=== PATIENT | female | born 2000 | race Caucasian/White ===

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

== ENCOUNTER 2021-09-30 17:08 | Emergency (ER) | payer MEDICAID ==
[2021-09-30 17:30] VITALS: BP 112/65; PULSE 86; O2SAT 96
== END 2021-09-30 18:12 | disposition left against medical advice (07) ==
LOC: ED 17:08
DX: Z53.9 Procedure and treatment not carried out, unspecified reason (principal)
CPT/HCPCS: 99283; G0463

== ENCOUNTER 2021-09-30 18:15 | Observation (INO) | payer MEDICAID ==
[2021-09-30 20:00] VITALS: BP 116/61; PULSE 79; O2SAT 99
[2021-09-30 20:37] LABS: Appearance SLIGHTLY CLOUDY (CLEAR); Bacteria RARE /HPF (NEGATIVE); Bilirubin NEGATIVE (NEGATIVE); Blood NEGATIVE Ery/ul (0-5); Epithelial Cells RARE /HPF (FEW); Glucose NEGATIVE (NEGATIVE); Ketones SMALL (NEGATIVE); Leukocyte Esterase TRACE (NEGATIVE); Mucus SLIGHT /HPF (NEGATIVE); Nitrite NEGATIVE (NEGATIVE); Protein,Urine Dip NEGATIVE (Negative); Specific Gravity 1.023 (1.005-1.025); Urobilinogen NEGATIVE mg/dL (0-1)
== END 2021-09-30 21:10 | disposition home or self-care (01) ==
LOC: OB 18:15
PROVIDERS: ADMIT Obstetrics & Gynecology; ATTEND Obstetrics & Gynecology
DX: Z34.02 Encounter for supervision of normal first pregnancy, second trimester (principal); Z3A.24 24 weeks gestation of pregnancy
CPT/HCPCS: 81001; G0378

== ENCOUNTER 2024-09-21 17:01 | Emergency (ER) | payer BC ==
[2024-09-21 17:24] VITALS: TEMP 98.1
--- NOTE | 2024-09-21 17:28 | ERPHSYRPT ---
- History of Present Illness Time Seen by Provider: 09/21/24 17:28 Source: patient, family Exam Limitations: no limitations Patient Subjective Stated Complaint: pt reports some vaginal bleeding after having a BM today. states there was blood on the toilet paper after wiping. states no bleeding since that time. pt does report some mild cramping earlier that has resolved and some low back pain which is normal for her. pt reports 13 wk 5 days gestation with a history of a subchorionic hemorrhage this which has resolved per her OB. Triage Nursing Assessment: pt is aox3, pupils perrl, afebrile, resps easy and non labored, cap refill < 3 seconds, radial pulses strong and equal, pt skin pink warm dry. abd soft non tender. no vaginal bleeding at this time. Physician History: This is a morbidly obese 23-year-old white female patient who is 13 weeks and 5 days who had some bleeding vaginally while wiping with associated mild cramping. Since that time the patient states has been no further bleeding or cramping. However she wanted to make sure "the baby was okay". Patient has a known single intrauterine . I reviewed ultrasounds that were done here at our facility. Patient's heart tone was measured at 172 bpm. Timing/Duration: today Activites at Onset: none Quality: cramping (Now resolved) Pain Radiation: none Severity of Pain-Max: mild Severity of Pain-Current: none Sexual intercourse history: non-contributory Modifying Factors: Improves With: nothing Associated Symptoms: , other (Mild vaginal bleeding which has stopped.) Allergies/Adverse Reactions: No Known Drug Allergies Allergy (Verified 09/30/21 17:30) Home Medications: Levothyroxine Sodium 75 Mcg [Synthroid 75 Mcg] 1 tablet PO DAILY 02/02/19 [History] Levothyroxine Sodium [Euthyrox] 1 ea DAILY 09/30/21 [History] Vit,Calc78/Iron/Folic [Prenatabs FA Tablet] 1 ea DAILY 09/30/21 [History] Hx Tetanus, Diphtheria Vaccination/Date Given: Yes Hx Influenza Vaccination/Date Given: No Hx Pneumococcal Vaccination/Date Given: No Travel Risk - International Travel Have you traveled outside of the country in past 3 weeks: No - Emerging Infectious Disease Are you exhibiting symptoms associated with any current EIDs: No - Review of Systems Constitutional: No Symptoms Eyes: No Symptoms Ears, Nose, & Throat: No Symptoms Respiratory: No Symptoms Cardiac: No Symptoms Abdominal/Gastrointestinal: No Symptoms Genitourinary Symptoms: Vaginal Bleeding Musculoskeletal: No Symptoms Skin: No Symptoms Neurological: No Symptoms Psychological: No Symptoms Endocrine: No Symptoms Hematologic/Lymphatic: No Symptoms Immunological/Allergic: No Symptoms All Other Systems: Reviewed and Negative - Past Medical History Pertinent Past Medical History: Yes Neurological History: No Pertinent History ENT History: No Pertinent History Cardiac History: No Pertinent History Respiratory History: No Pertinent History Endocrine Medical History: Hypothyroidism Musculoskeletal History: No Pertinent History GI Medical History: No Pertinent History Psycho-Social History: Depression Female Reproductive Disorders: No Pertinent History - Past Surgical History Past Surgical History: Yes Neuro Surgical History: No Pertinent History Cardiac: No Pertinent History Respiratory: No Pertinent History Gastrointestinal: No Pertinent History Genitourinary: No Pertinent History Musculoskeletal: No Pertinent History Female Surgical History: No Pertinent History Other Surgical History: EYE SURGERY - Female History Hx Last Menstrual Period: 05/09/24 Hx Now: Yes Gestational Age: 13 - Social History Smoking Status: Current some day smoker Drug Use: none - Social Determinants of Health Will the patient participate in the screening: Declined to provide - Nursing Vital Signs Nursing Vital Signs: Initial Vital Signs Temperature 98.1 F 09/21/24 17:10 Pulse Rate 96 H 09/21/24 17:10 Respiratory Rate 16 09/21/24 17:10 Blood Pressure 138/50 09/21/24 17:10 O2 Sat by Pulse Oximetry 98 09/21/24 17:10 Pain Scale Pain Intensity 0 - Physical Exam General Appearance: no apparent distress, alert, anxiety, obese Eye Exam: PERRL/EOMI, eyes nml inspection Ears, Nose, Throat Exam: normal ENT inspection, moist mucous membranes Neck Exam: normal inspection, non-tender, supple, full range of motion Respiratory Exam: normal breath sounds, lungs clear, airway intact, No chest tenderness, No respiratory distress Cardiovascular Exam: regular rate/rhythm, normal heart sounds, normal peripheral pulses Gastrointestinal/Abdomen Exam: soft, normal bowel sounds, No tenderness Pelvic Exam: not done Rectal Exam: not done Back Exam: normal inspection, normal range of motion, vertebral tenderness, No CVA tenderness Extremity Exam: normal inspection, normal range of motion, pelvis stable Neurologic Exam: alert, oriented x 3, cooperative, critical care transport nurse II-XII nml as tested, nml cerebellar function, nml station & gait, sensation nml Skin Exam: normal color, warm, dry Lymphatic Exam: No adenopathy SpO2 Interpretation: normal SpO2: 98 O2 Delivery: Room Air - Course Nursing assessment & vital signs reviewed: Yes Ordered Tests: Active Orders 24 hr Category Date Time Status CBC W DIFF Stat Lab 09/21/24 18:02 Completed CMP Stat Lab 09/21/24 18:02 Received HCG, Quantitative (Inhouse) Stat Lab 09/21/24 18:02 Received UA W/RFX UR CULTURE Stat Lab 09/21/24 17:24 Completed Medication Summary Discontinued Medications Generic Name Dose Route Start Last Admin Trade Name Freq PRN Reason Stop Dose Admin Cephalexin HCl 500 mg 09/21/24 18:39 09/21/24 18:47 Cephalexin Mh500 Mg Capsule PO 09/21/24 18:40 500 mg STAT ONE Administration Cephalexin HCl Confirm 09/21/24 18:46 Cephalexin Mh500 Mg Capsule Administered 09/21/24 18:47 Dose 500 mg .ROUTE .[employer] ONE Lab/Rad Data: Laboratory Result Diagrams 09/21/24 18:02 Laboratory Results 09/21/24 09/21/24 Range/Units 18:02 17:24 WBC 11.1 H (3.98-10.04) x10^3/uL RBC 4.47 (3.93-5.22) x10^6/uL Hgb 12.7 (11.2-15.7) g/dL Hct 37.5 (34.1-44.9) % MCV 83.9 (79.4-94.8) fL MCH 28.4 (25.6-32.2) pg MCHC 33.9 (32.2-35.5) g/dL RDW 13.0 (11.7-14.4) % Plt Count 304 (182-369) x10^3/uL MPV 10.2 (9.4-12.3) fL Gran % 63.8 (34.0-71.1) % Immature Gran % (Auto) 0.6 H (0.001-0.429) % Nucleat RBC Rel Count 0.0 (0.00-0.2) % Eos # (Auto) 0.21 (0.04-0.36) x10^3/uL Immature Gran # (Auto) 0.07 H (0.001-0.031) x10^3u/L Absolute Lymphs (auto) 2.96 (1.18-3.74) x10^3/uL Absolute Monos (auto) 0.73 (0.24-0.86) x10^3/uL Absolute Nucleated RBC 0.00 (0.00-0.012) x10^3u/L Lymphocytes % 26.7 (19.3-51.7) % Monocytes % 6.6 (4.7-12.5) % Eosinophils % 1.9 (0.7-5.8) % Basophils % 0.4 (0.1-1.2) % Absolute Granulocytes 7.06 H (1.56-6.13) x10^3/uL Basophils # 0.04 (0.01-0.08) x10^3/uL Urine Color Yellow (Yellow) Urine Appearance Clear (Clear) Urine pH 6.0 (4.6-8.0) Ur Specific [place] <=1.005 (1.005-1.030) Urine Protein Negative (Negative) Urine Glucose (UA) Negative (Negative) mg/dL Urine Ketones Negative (Negative) Urine Blood Negative (Negative) Urine Nitrite Negative (Negative) Urine Bilirubin Negative (Negative) Urine Urobilinogen 0.2 (0.2) mg/dL Ur Leukocyte Esterase Moderate A (Negative) U Hyaline Cast (Auto) NONE SEEN (0-2) /LPF Urine Microscopic RBC 0-2 (0-5) /HPF Urine Microscopic WBC 6-10 A (0-5) /HPF Ur Epithelial Cells Rare (None Seen) /HPF Urine Bacteria None Seen (None Seen) /HPF Urine Culture Reflexed NO (NO) - Progress Progress: improved, re-examined Air Movement: good Progress Note: 09/21/24 19:15 My medical decision making of the assignment of moderate complexity to this patient's medical issue today. It is based on review of the patient's past medical history, review of the patient's medication list, reviewed patient drug allergy list, history present illness and physical findings on examination. The workup in this patient includes CBC, CMP, urinalysis, quantitative hCG, obtain heart tones. Differential diagnosis includes but is not limited to urinary tract infection, vaginal bleeding, anemia. In order to expedite the patient's workup, because we had several emergent patients come in by ambulance, I reviewed the nurses note and discussed the patient's condition with that nurse, I ordered the above workup. I reviewed the workup results that had returned. The quantitative hCG and the CMP were pending at the time I went in to examine the patient and have the discussion with her. She does have a urinary tract infection. I interpreted the labor atory data results that had returned. Patient became upset when she was told that we would not be calling her with lab results so she could leave. She was upset that she has already been here 2 hours and her lab results have not completely returned. I offered her to stay and complete the workup. I gave her the option of being discharged AGAINST MEDICAL ADVICE and to sign AGAINST MEDICAL ADVICE form. She was informed that her condition could worsen and this could affect her and/or the fetus detrimentally. Patient has opted for leaving AGAINST MEDICAL ADVICE. Counseled pt/family regarding: lab results, diagnosis, need for follow-up Medical Desision Making - Diagnostic Testing Diagnostic test were ordered, analyzed, and reviewed by me: Yes - Risk of complications The pt has a mod risk of morbidity or mortality based on: Need for prescription drug management - Departure Departure Disposition: AMA Clinical Impression: Urinary tract infection affecting Condition: Stable Critical Care Time: No Referrals: JEAN CLAUDE ESTEBAN DO [Primary Care Provider] - Follow up/PCP as directed Additional Instructions: Drink plenty of fluids take your antibiotics and other medications as prescribe d. Call your drawbridge tender and/or your primary care provider on 09/24/2024 to obtain the lab results that you declined to wait for here in the emergency department on 09/21/2024. Prescriptions: Cephalexin Mh 500 mg [Keflex 500 mg] 500 mg PO TID #15 cap
[2024-09-21 17:37] LABS: Appearance Clear (Clear); Bacteria None Seen /HPF (None Seen); Bilirubin Negative (Negative); Blood Negative (Negative); Epithelial Cells Rare /HPF (None Seen); Glucose, Urine Negative (Negative); Hyaline Casts NONE SEEN /LPF (0-2); Ketones Negative (Negative); Leukocyte Esterase Moderate (Negative); Nitrite Negative (Negative); Protein,Urine Dip Negative (Negative); RBC 0-2 /HPF (0-5); Specific Gravity <=1.005 (1.005-1.030); Urobilinogen 0.2 mg/dL (0.2)
[2024-09-21 18:14] LABS: Absolute Neutrophil Ct (ANC) 7.06 x10^3/uL (1.56-6.13); BASOPHIL % 0.4 % (0.1-1.2); Basophil (Absolute #) 0.04 x10^3/uL (0.01-0.08); Eosinophil % 1.9 % (0.7-5.8); Eosinophil (Absolute #) 0.21 x10^3/uL (0.04-0.36); Hematocrit 37.5 % (34.1-44.9); Hemoglobin 12.7 g/dL (11.2-15.7); IMMATURE GRAN # 0.07 x10^3u/L (0.001-0.031); IMMATURE GRAN % 0.6 % (0.001-0.429); Lymphocyte (Absolute #) 2.96 x10^3/uL (1.18-3.74); Lymphocytes % 26.7 % (19.3-51.7); Mean Cell Volume 83.9 fL (79.4-94.8); Mean Corpuscular Hemoglobin 28.4 pg (25.6-32.2); Mean Corpuscular Hgb Concent. 33.9 g/dL (32.2-35.5); Mean Platelet Volume 10.2 fL (9.4-12.3); Monocyte (Absolute #) 0.73 x10^3/uL (0.24-0.86); Monocytes % 6.6 % (4.7-12.5); Neutrophil % 63.8 % (34.0-71.1); Platelet Count 304 x10^3/uL (182-369); Red Blood Count 4.47 x10^6/uL (3.93-5.22); White Blood Count 11.1 x10^3/uL (3.98-10.04)
[2024-09-21] MEDS ORDERED: KEFLEX 500 MG ONE (18:46)
[2024-09-21] MEDS: KEFLEX 500 MG PO ONE (18:47)
[2024-09-21 18:49] LABS: ALBUMIN 3.9 g/dL (3.5-5.0); ANION GAP 14.1 MEQ/L (5-15); BILIRUBIN,TOTAL 0.4 mg/dL (0.2-1.3); Calcium 9.3 mg/dL (8.4-10.2); Creatinine 1 0.63 mg/dL (0.52-1.04); EST GLOMERULAR FILTRATION RATE 127.8 ML/MIN; Potassium 3.7 mmol/L (3.5-5.1); Total Protein 6.9 g/dL (6.3-8.2)
[2024-09-21 19:18] VITALS: O2SAT 98
[2024-09-21 19:26] VITALS: BP 142/87; PULSE 95; RESP 21
== END 2024-09-21 19:33 | disposition home or self-care (01) ==
LOC: ED 17:01
DX: O23.41 Unspecified infection of urinary tract in pregnancy, first trimester (principal); N39.0 Urinary tract infection, site not specified; Z3A.13 13 weeks gestation of pregnancy; O20.9 Hemorrhage in early pregnancy, unspecified; Z79.899 Other long term (current) drug therapy; Z72.0 Tobacco use
CPT/HCPCS: 36415; 80053; 81001; 84702; 85025; 99283; A9270-GY